=== PATIENT | female | born 1960 | race Caucasian/White ===

== ENCOUNTER 2024-11-02 13:46 | Emergency (ER) | payer MEDICARE, SELFPAY ==
--- NOTE | ~2024-11-02 | XR_ITS ---
EXAMINATION: XR foot LT min 3V DATE: 11/02/2024 14:43 INDICATION: Left foot pain and swelling. TECHNIQUE: 4 views of left foot were obtained. COMPARISON: None. FINDINGS: There is dorsiflexion of the metatarsophalangeal joints. No fracture. There is mild osteoar thritis of some of the interphalangeal joints. IMPRESSION: 1. Mild polyarticular osteoarthritis. Reviewed, dictated and finalized at location A. MANAGER
[2024-11-02 14:02] VITALS: BP 154/61; PULSE 70; RESP 16; TEMP 36.4; O2SAT 99
--- NOTE | 2024-11-02 14:12 | ED_ITS ---
HPI - Extremity Injury (Lower) General Chief Complaint: Extremity Injury, Lower Stated Complaint: Toe Injury Time Seen by Provider: 11/02/24 14:12 Source: patient Mode of arrival: ambulatory Limitations: no limitations History of Present Illness HPI Narrative: 64-year-old female presents with complaint of pain to his 2nd, 3rd and 4th toes of left foot with swelling, bruising to the 3rd and 4th toe. Patient got up around 2:00 a.m. this morning to use the bathroom and kicked left foot into Vacuum. patient ambulatory with steady gait. all systems reviewed and negative except as noted above. Related Data Home Medications ?Medication ?Instructions ?Recorded ?Confirmed ?Last Taken ?Type atorvastatin 20 mg tablet mg 11/02/24 Unknown History fluphenazine HCl 5 mg tablet mg 11/02/24 Unknown History fluticasone propionate 230 inhalation 11/02/24 Unknown History mcg-salmeterol 21 mcg/actuation HFA inhaler (Advair HFA) metoprolol succinate 25 mg mg PO 11/02/24 Unknown History tablet,extended release 24 hr olmesartan 40 mg tablet mg 11/02/24 Unknown History pravastatin 20 mg tablet mg 11/02/24 Unknown History quetiapine 400 mg tablet mg 11/02/24 Unknown History ramelteon 8 mg tablet mg PO 11/02/24 Unknown History Allergies Allergy/AdvReac Type Severity Reaction Status Date / Time carbamazepine Allergy Severe Siezure Verified 11/02/24 14:06 Penicillins Allergy Severe Rash Verified 11/02/24 14:06 Review of Systems Review of Systems: CONSTITUTIONAL: Denies fever, chills, or sweats. EYES: Denies visual changes, redness, or discharge. ENT: Denies rhinorrhea, congestion, sore throat, or otalgia. CARDIOVASCULAR: Denies chest pain, palpitations, or edema. RESPIRATORY: Denies cough or dyspnea. GASTROINTESTINAL: Denies abdominal pain, nausea, vomiting, or diarrhea. GENITOURINARY: Denies dysuria or hematuria. SKIN: Denies rash or itching. MUSCULOSKELETAL: Pain and swelling to 2nd, 3rd and 4th toe of left foot. NEUROLOGIC: Denies headache, numbness, or weakness. PSYCHIATRIC: Denies anxiety or depression. All other systems reviewed are negative, except as documented in HPI. [facility] Social History Social History (System 07/25/23 @ 15:31 by Julien Barnhart) Smoking status: Current every day smoker Alcohol intake: current Comments At time of signature, agree with nursing past medical, surgical, social and family history. There is no relevant family history pertinent to the presenting complaint. Exam Narrative: GENERAL: This is a well-nourished, well-developed patient, in no apparent distress. HEAD: normocephalic, atraumatic. EYES: PERRL. Sclera clear/white. Vision is grossly intact. EARS: External ears normal NOSE: External nose normal NECK: Neck supple, non-tender without lymphadenopathy, masses or thyromegaly. CARDIOVASCULAR: Regular rate and rhythm without murmurs, gallops, or rubs. RESPIRATORY: Clear to auscultation. Breath sounds equal bilaterally. No wheezes, rales, or rhonchi. SKIN: warm, Dry, intact with no suspicious lesions or rash, good texture and turgor. NEURO: awake, alert, and oriented to person, place and time. There were no obvious focal neurologic abnormalities. EXTREMITIES: Tenderness on palpation of proximal aspect of 2nd and 3rd toes. Bruising And mild swelling to 2nd, 3rd and 4th toe noted. no deformity noted. Distal neurovascularly intact. Course Course Level of Care: Express Care Visit Vital Signs Vital signs: Vital Signs Temperature 36.4 C 11/02/24 14:02 Pulse Rate 70 11/02/24 14:02 Respiratory Rate 16 11/02/24 14:02 Blood Pressure 154/61 H 11/02/24 14:02 Pulse Oximetry 99 11/02/24 14:02 Oxygen Delivery Room Air 11/02/24 14:02 Temperature 36.4 C 11/02/24 14:02 Pulse Rate 70 11/02/24 14:02 Respiratory Rate 16 11/02/24 14:02 Blood Pressure 154/61 H 11/02/24 14:02 Pulse Oximetry 99 11/02/24 14:02 Oxygen Delivery Room Air 11/02/24 14:02 Reviewed MDM - Extremity Injury (Lower) MDM Narrative Medical decision making narrative: x-ray of left foot negative for fracture. Discussed results with patient. Recommend ice, elevation, rest. Patient is aware of diagnosis, understands and agrees to treatment plan. Anticipatory guidance given. Patient agrees to follow-up as directed and is aware of reasons to seek care at the emergency department. Portions of this record may have been created with voice recognition software Imaging Data My impression: agree with radiologist Radiologist's impression: EXAMINATION: XR foot LT min 3V DATE: 11/02/2024 14:43 INDICATION: Left foot pain and swelling. TECHNIQUE: 4 views of left foot were obtained. COMPARISON: None. FINDINGS: There is dorsiflexion of the metatarsophalangeal joints. No fracture. There is mild osteoarthritis of some of the interphalangeal joints. IMPRESSION: 1. Mild polyarticular osteoarthritis. Discharge Plan Discharge Clinical Impression: Contusion of third toe of left foot Qualifiers: Encounter type: initial encounter Qualified Code(s): S90.122A - Contusion of left lesser toe(s) without damage to nail, initial encounter Contusion of fourth toe of left foot Qualifiers: Encounter type: initial encounter Qualified Code(s): S90.122A - Contusion of left lesser toe(s) without damage to nail, initial encounter Contusion of second toe of left foot Qualifiers: Encounter type: initial encounter Qualified Code(s): S90.122A - Contusion of left lesser toe(s) without damage to nail, initial encounter Patient Disposition: Home, Self-Care Condition: Stable Instructions: Contusion in Adults (ED) Additional Instructions: the x-ray of your left foot was negative for fracture. Take ibuprofen or Tylenol every 6-8 hours as needed for pain. Elevate when at rest. Apply ice as needed for pain. If pain not improving in the next 3-4 weeks follow-up with your primary care physician for further evaluation. Patient Language: Citizen Of [place] Prescriptions: No Action atorvastatin 20 mg tablet pravastatin 20 mg tablet metoprolol succinate 25 mg tablet extended release 24 hr PO fluphenazine HCl 5 mg tablet olmesartan 40 mg tablet ramelteon 8 mg tablet PO quetiapine 400 mg tablet fluticasone propion-salmeterol [Advair HFA] 230-21 mcg/actuation HFA aerosol inhaler INHALATION Follow-up/Referrals: Tabby,MD Светлана [Primary Care Provider] - Time of Disposition: 15:03
== END 2024-11-02 15:11 | disposition home or self-care (01) ==
PROVIDERS: Emergency Provider Nurse Practitioner Family; PCP Hospitalist
DX: S90.122A Contusion of left lesser toe(s) without damage to nail, initial encounter (principal); W22.09XA Striking against other stationary object, initial encounter; F17.200 Nicotine dependence, unspecified, uncomplicated
CPT/HCPCS: 73630; 99213; G0463